=== PATIENT | male | born 1995 | race Caucasian/White ===

== ENCOUNTER 2017-07-23 09:11 | Emergency (ER) | payer SELFPAY ==
[~2017-07-23] VITALS: Ht 167.6 cm; Wt 67.8 kg
[2017-07-23] MEDS ORDERED: LEXAPRO 10MG10 MG PO (09:36)
[2017-07-23] MEDS ORDERED: VALTREX 50500 MG/TAB PO (09:36)
[2017-07-23] MEDS ORDERED: CONCERTA27 MG PO (09:36)
[2017-07-23] MEDS ORDERED: ZOVIRAX400 MG PO (11:05)
[2017-07-23] MEDS ORDERED: ATARAX 25MG25 MG/TAB PO (11:05)
[2017-07-23] MEDS ORDERED: REMERON30 MG PO (11:06)
[2017-07-23 12:53] VITALS: BP 111/75; PULSE 60; TEMP 97.2
== END 2017-07-23 12:55 | disposition home or self-care (01) ==
LOC: COL.ER 09:11
DX: N48.30 Priapism, unspecified (principal)
CPT/HCPCS: J3010